=== PATIENT | female | born 1930 | race Caucasian/White ===

== ENCOUNTER 2016-05-15 15:01 | Inpatient (IN) | payer OTHER ==
[~2016-05-15] VITALS: Ht 162.6 cm; Wt 63.0 kg
--- NOTE | ~2016-05-15 | D ---
[facility] [address] [place] [address] DISCHARGE SUMMARY Name: ABIMAEL DALE Room #: 535-P [facility] IN M.R.#: [id number] Admission: 05/15/16 Attend Phys: Isauro Keene MD Discharge: 05/18/16 Date of : 28 Report #: [id number] THIS REPORT FOR: //name// CC: Isauro Keene [facility] physician/PCP DATE OF SERVICE: 05/18/2016 FINAL DIAGNOSES: 1 Gait disturbance. 2. Recurrent falls. 3. Senile debility. 4. Mild dementia. HOSPITAL COURSE: The patient was admitted with multiple falls at home. Fortunately, there were no signs of fracture or major injury as a result. She was treated conservatively. Other basic lab work and x-rays were unremarkable. Urinalysis was negative for signs of infection. Physical and occupational therapy were ordered. I had the case folder discuss the situation with her and her family. I recommended moving to an assisted living facility as she is fragile and with her advanced age and related debility, she may not be safe to live alone any longer. PHYSICAL EXAMINATION: GENERAL: On the day of discharge, she was awake and alert. VITAL SIGNS: Stable. LUNGS: Clear. HEART: Regular. ABDOMEN: Soft. EXTREMITIES: No edema. DISPOSITION: She is being transferred to [facility]. I will follow her stay there. She will follow up with me in about a month. She will have physical and occupational therapy. The only medication at this time is Tylenol. <ELECTRONICALLY SIGNED> By: Isauro Keene MD 05/23/16 1300 [id number] Isauro Keene MD /nt
--- NOTE | ~2016-05-15 | EKG ---
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 : 1930 Requested By: Sujit Valdivai Order Number: [id number] MD: Neftali Andrews Measurements Intervals Poth Rate: 85 P: -10 MT: 171 QRS: 29 QRSD: 84 T: 41 QT: 370 QTc: 440 Interpretive Statements Baseline artifact Probable Sinus rhythm Abnormal R-wave progression, early transition No previous ECG available for comparison Electronically Signed On 05-16-2016 9:43:52 CDT by Neftali Andrews [email or web address] <ELECTRONICALLY SIGNED> By: Neftali Andrews MD, [facility] 05/16/16 0943 1540 1540 Neftali Andrews MD, FACC /EPI
--- NOTE | ~2016-05-15 | H ---
[facility] [address] [place] [address] HISTORY AND PHYSICAL Name: ABIMAEL DALE Room #: 535-P ADM IN .R.#: [id number] Admission: 05/15/16 Attend Phys: Isauro Keene MD Discharge: Date of : 28 Report #: [id number] THIS REPORT FOR: //name// CC: Isauro Keene [facility] physician/PCP DATE OF SERVICE: 05/15/2016 CHIEF COMPLAINT: Weakness and falls. HISTORY OF PRESENT ILLNESS: The patient is an 86-year-old female who was admitted to the emergency room from home after multiple falls. All the history is obtained by reviewing the records. The patient states she just fell. I am not sure if she "blacked out", but remembers that her neighbor came over to help her and called for an ambulance to bring her to the hospital. ER reports state that the neighbors had seen her go out to get her mail and she fell a few times on the driveway. They noted she seemed confused and called for EMS to take her to the hospital. The neighbors reported that her son lives in [place] and was coming to see her to discuss moving to a care facility. PAST MEDICAL HISTORY: None. PAST SURGICAL HISTORY: She has had a right hip replacement. FAMILY HISTORY: Noncontributory. SOCIAL HISTORY: No chronic alcohol or tobacco use. ALLERGIES: None. MEDICATIONS: Aspirin and Tums. REVIEW OF SYSTEMS: She complains of a stiff staff neck. Otherwise, no headache, chest pain, shortness of breath, abdominal pain, nausea, vomiting, diarrhea, constipation or dysuria. PHYSICAL EXAMINATION: VITAL SIGNS: Temperature 36.3, pulse 74, respirations 18, blood pressure 145/51 and O2 sat 94% on room air. GENERAL: She is awake and alert, in no distress. HEAD AND NECK: Unremarkable. LUNGS: Clear. HEART: Regular. ABDOMEN: Soft. Normoactive bowel sounds. No palpable masses. EXTREMITIES: No cyanosis, clubbing or edema. NEUROLOGIC: Global strength 3/5 throughout. She was oriented to hospital and [address] [address] HISTORY AND PHYSICAL Name: ABIMAEL DALE Room #: 535-P [facility] IN ..#: [id number] Admission: 05/15/16 Attend Phys: Isauro Keene MD Discharge: Date of : 28 Report #: [id number] her name and vaguely remembered falling. She recognized me as her doctor, but not by name. RADIOLOGIC DATA: Radiology studies reviewed. There is no fracture and no acute stroke or intracranial injury. ASSESSMENT: 1. Gait disturbance. 2. Multiple falls. 3. Mild senile dementia. PLAN: She does seem somewhat forgetful. She does not remember the events. She seemed to perseverate on an episode of a teenage neighbor who was coming to help her, but was "being mean to my cat". She did mention that her son was coming to visit, but seemed to indicate it was 2 weekends ago and not recently. I did talk to her about long term rehabilitation and then coordinating with her son for assisted living placement. Physical and occupational therapy to begin. SCDs for DVT prophylaxis. <ELECTRONICALLY SIGNED> By: Isauro Keene MD 05/18/16 0927 1006 1113 Isauro Keene MD /nt
[2016-05-15 15:34] LABS: HEMATOCRIT 35.6 % (37.0-47.0); HEMOGLOBIN 11.8 gm/dL (12.0-15.0); MCHC 33.2 g/dL (28.0-37.0); MCV 87.4 fL (80.0-100.0); PLATELET COUNT 327 thou/uL (150-400); RBC 4.07 mil/uL (4.20-5.00); RDW 13.5 % (10.5-14.5); WBC 14.7 thou/uL (4.0-11.0)
[2016-05-15 15:38] LABS: MANUAL DIFF YES
[2016-05-15 15:44] LABS: CALCIUM 9.4 mg/dL (8.5-10.1); CREATININE 1.1 mg/dL (0.6-1.3); POTASSIUM 3.9 mmol/L (3.5-5.1)
[2016-05-15 15:49] LABS: ALBUMIN 4.2 g/dL (3.4-5.0); TOTAL BILIRUBIN 0.6 mg/dL (<0.1-1.0); TOTAL PROTEIN 7.9 g/dL (6.4-8.2)
[2016-05-15 15:59] LABS: ABSOLUTE NEUTROPHILS 12.8 thou/uL (1.4-8.2); TOTAL CELL COUNT 100
[2016-05-15 16:32] LABS: URINE BLOOD NEGATIVE (Negative); URINE COLOR YELLOW; URINE GLUCOSE-RANDOM* NEGATIVE (Negative); URINE KETONES TRACE (Negative); URINE LEUKOCYTES-REFLEX NEGATIVE (Negative); URINE PROTEIN (DIPSTICK) TRACE (Negative); URINE SPECIFIC GRAVITY >= 1.030 (1.003-1.035); URINE UROBILINOGEN 0.2 E.U./dl (0.2-1.0)
[2016-05-15 16:34] LABS: ICTOTEST (BILI CONFIRMATORY) Negative (Negative); URINE BILIRUBIN NEGATIVE (Negative)
[2016-05-17 12:52] LABS: CALCIUM 8.7 mg/dL (8.5-10.1); CREATININE 0.8 mg/dL (0.6-1.3); POTASSIUM 3.7 mmol/L (3.5-5.1)
[2016-05-17 13:04] LABS: HEMATOCRIT 32.4 % (37.0-47.0); HEMOGLOBIN 10.7 gm/dL (12.0-15.0); MCH 29.2 pg (26.0-34.0); MCHC 33.2 g/dL (28.0-37.0); MCV 88.1 fL (80.0-100.0); RBC 3.68 mil/uL (4.20-5.00); RDW 13.5 % (10.5-14.5); WBC 11.8 thou/uL (4.0-11.0)
[2016-05-18] MEDS ORDERED: ACETAMINOPHEN325 M1 PO (13:02)
== END 2016-05-18 15:10 | DRG 93 ==
LOC: ER 15:01 → 5S 16:53 → EROBS 16:53 → 5S 17:28
PROVIDERS: Internal Medicine Geriatric Medicine; Physician Assistant
DX: R26.9 Unspecified abnormalities of gait and mobility (principal); D72.829 Elevated white blood cell count, unspecified; W18.39XA Other fall on same level, initial encounter; Z96.641 Presence of right artificial hip joint; F03.90 Unspecified dementia, unspecified severity, without behavioral disturbance, psychotic disturbance, mood disturbance, and anxiety; G31.84 Mild cognitive impairment of uncertain or unknown etiology; R54 Age-related physical debility; Z23 Encounter for immunization; Y93.89 Activity, other specified; Y92.89 Other specified places as the place of occurrence of the external cause; Y99.8 Other external cause status
CPT/HCPCS: 10086